=== PATIENT | male | born 1960 | race Two or more races ===

== ENCOUNTER → 2017-10-02 | Emergency (ER) | payer OTHER ==
[~2017-10-02] VITALS: Ht 170.2 cm; Wt 78.0 kg
[~2017-10-02] MED LIST: ALLEGRA-D 24 H1 EACH PO; ATRIPLA TABLET1 EACH PO; AVAPRO150 MG PO; TAMS0.4C; VALTREX1000 MG
== END | disposition home or self-care (01) ==
LOC: ER 05:25
DX: K80.80 Other cholelithiasis without obstruction (principal); R10.11 Right upper quadrant pain

== ENCOUNTER 2017-10-19 06:30 | Day surgery (SDC) | payer OTHER ==
[~2017-10-19 06:30] MED LIST changes: +[UNRECOGNIZED DRUG - OTHER] PO
[2017-10-19] MEDS ORDERED: ULTRACET PO (12:51)
== END 2017-10-19 15:50 | disposition home or self-care (01) ==
LOC: CIR.AMB 06:30
DX: K80.10 Calculus of gallbladder with chronic cholecystitis without obstruction (principal)

== ENCOUNTER 2017-10-19 20:02 | Emergency (ER) | payer OTHER ==
[~2017-10-19] VITALS: Ht 170.2 cm; Wt 78.0 kg
[~2017-10-19 20:02] MED LIST changes: +ULTRACET PO
== END 2017-10-19 23:42 | disposition home or self-care (01) ==
LOC: ER 20:02
DX: N99.89 Other postprocedural complications and disorders of genitourinary system (principal); R33.8 Other retention of urine

== ENCOUNTER 2017-10-20 14:55 | Emergency (ER) | payer OTHER ==
[~2017-10-20] VITALS: Ht 170.2 cm; Wt 78.0 kg
== END 2017-10-20 17:11 | disposition home or self-care (01) ==
LOC: ER 14:55
DX: R33.8 Other retention of urine (principal)

== ENCOUNTER → 2017-10-20 | Emergency (ER) | payer OTHER ==
[~2017-10-20] VITALS: Ht 170.2 cm; Wt 78.0 kg
== END | disposition home or self-care (01) ==
LOC: ER 10:32
DX: Z46.6 Encounter for fitting and adjustment of urinary device (principal)

== ENCOUNTER 2017-10-21 22:50 | Emergency (ER) | payer OTHER ==
[~2017-10-21] VITALS: Ht 170.2 cm; Wt 78.0 kg
== END 2017-10-22 02:41 | disposition home or self-care (01) ==
LOC: ER 22:50
DX: R33.8 Other retention of urine (principal)

== ENCOUNTER 2017-10-31 11:52 | Outpatient (CLI) | payer OTHER | END 2017-10-31 12:02 | disposition home or self-care (01) | LOC: SONOGRAMA 11:52 → MAMO-SONO 12:45 | DX: N40.1 Benign prostatic hyperplasia with lower urinary tract symptoms (principal) ==

== ENCOUNTER 2018-09-26 10:11 | Emergency (ER) | payer OTHER ==
[~2018-09-26] VITALS: Ht 170.2 cm; Wt 76.2 kg
[2018-09-26] MEDS ORDERED: IBUPROFEN800 MG PO (12:30)
== END 2018-09-26 12:42 | disposition home or self-care (01) ==
LOC: ER 10:11
DX: S60.021A Contusion of right index finger without damage to nail, initial encounter (principal); W23.0XXA Caught, crushed, jammed, or pinched between moving objects, initial encounter; Y93.89 Activity, other specified; Y92.89 Other specified places as the place of occurrence of the external cause; Y99.8 Other external cause status

== ENCOUNTER → 2020-03-28 | Emergency (ER) | payer OTHER ==
[~2020-03-28] VITALS: Ht 170.2 cm; Wt 78.9 kg
[~2020-03-28] MED LIST changes: +IBUPROFEN800 MG PO
== END | disposition home or self-care (01) ==
LOC: ER 19:48
DX: B34.9 Viral infection, unspecified (principal); Z03.818 Encounter for observation for suspected exposure to other biological agents ruled out; R06.02 Shortness of breath; R05 Cough; R10.13 Epigastric pain

== ENCOUNTER 2021-12-02 11:21 | Emergency (ER) | payer OTHER ==
[~2021-12-02] VITALS: Ht 170.2 cm; Wt 78.0 kg
== END 2021-12-02 14:29 | disposition home or self-care (01) ==
LOC: ER 11:21
DX: B34.9 Viral infection, unspecified (principal); I10 Essential (primary) hypertension

== ENCOUNTER 2022-01-28 08:43 | Emergency (ER) | payer OTHER ==
[~2022-01-28] VITALS: Ht 170.2 cm; Wt 78.0 kg
[2022-01-28] MEDS ORDERED: MEDROLPACK PO (13:23)
[2022-01-28] MEDS ORDERED: BENZONATATE200 M1 PO (13:23)
[2022-01-28] MEDS ORDERED: MUCINEX DM ER1 EAC1 PO (13:23)
== END 2022-01-28 13:27 ==
LOC: ER 08:43
DX: J06.9 Acute upper respiratory infection, unspecified (principal); B34.9 Viral infection, unspecified; I10 Essential (primary) hypertension; Z20.822 Contact with and (suspected) exposure to COVID-19

== ENCOUNTER 2022-08-11 14:40 | Emergency (ER) | payer OTHER ==
[~2022-08-11] VITALS: Ht 170.2 cm; Wt 78.0 kg
[~2022-08-11 14:40] MED LIST changes: +BENZONATATE200 M1 PO; +MEDROLPACK PO; +MUCINEX DM ER1 EAC1 PO
== END 2022-08-11 21:29 | disposition home or self-care (01) ==
LOC: ER 14:40
DX: J06.9 Acute upper respiratory infection, unspecified (principal); Z20.822 Contact with and (suspected) exposure to COVID-19

== ENCOUNTER 2023-08-08 13:31 | Emergency (ER) | payer OTHER ==
[~2023-08-08] VITALS: Ht 170.2 cm; Wt 78.0 kg
[2023-08-08] MEDS ORDERED: ESGIC CAPSULE1 EACH PO (23:03)
== END 2023-08-08 23:38 ==
LOC: ER 13:32
DX: G43.909 Migraine, unspecified, not intractable, without status migrainosus (principal)

== ENCOUNTER 2024-10-02 08:32 | Emergency (ER) | payer OTHER ==
[~2024-10-02] VITALS: Ht 170.2 cm; Wt 73.5 kg
[~2024-10-02 08:32] MED LIST changes: +ESGIC CAPSULE1 EACH PO
[2024-10-02 10:14] LABS: ABG PH 7.458 (7.35-7.45); ABG pCO2 32.5 mmHg (35-45); BASE EXCESS -0.5 mmol/l; BICARBONATE 22.5 mmol/l (23-25); SaO2 98.1 %; Tco2 23.5 mmol/l
[2024-10-02 10:39] LABS: HEMATOCRIT 46.2 % (39.0-48.0); HEMOGLOBIN 15.7 g/dL (13-16.00); MEAN CELL VOLUME 89.3 fL (80.0-100.00); MEAN CORPUSCULAR HEMOGLOBIN 30.5 pg (27.00-32.0); MEAN CORPUSCULAR HGB CONC 34.1 g/dl (32.0-36.0); PLATELET COUNT 251 K/uL (150-450); RED BLOOD COUNT 5.17 M/uL (4.00-6.00); RED CELL DISTRIBUTION WIDTH 13.3 % (11.5-14.5)
[2024-10-02] MEDS ORDERED: LEVALBUTEROL HCL 1.25 MG/3 ML SOLUTION IH STA (12:19)
[2024-10-02] MEDS ORDERED: levoFLOXacin IN DEXTROSE 5 % 500MG/100ML PIGGYBAG IV STA (12:19)
[2024-10-02] MEDS ORDERED: BUDESONIDE 0.5 MG/2 ML AMPUL.NEB IH STA (12:20)
[2024-10-02 15:16] LABS: allen test SATISFACTORY; o2 21 %; puncture site RADIAL LEFT
== END 2024-10-02 18:29 | disposition home or self-care (01) ==
LOC: ER 08:35
PROVIDERS: General Practice
DX: J06.9 Acute upper respiratory infection, unspecified (principal); R53.83 Other fatigue; Z21 Asymptomatic human immunodeficiency virus [HIV] infection status; I10 Essential (primary) hypertension; Z20.822 Contact with and (suspected) exposure to COVID-19